=== PATIENT | male | born 1990 | race African-American/Black ===

== ENCOUNTER 2020-05-24 00:03 | Emergency (ER) | payer SELFPAY ==
[~2020-05-24] VITALS: Ht 177.8 cm; Wt 65.9 kg
[2020-05-24] MEDS ORDERED: BASAGLAR K100 UNIT/1 SQ (00:16)
[2020-05-24] MEDS ORDERED: NOVOLIN R100 UNIT/1 SQ (00:16)
[2020-05-24 01:23] VITALS: BP 130/84
== END 2020-05-24 01:23 | disposition home or self-care (01) ==
LOC: ED 00:03
DX: R07.89 Other chest pain (principal); E10.9 Type 1 diabetes mellitus without complications; F17.210 Nicotine dependence, cigarettes, uncomplicated; Z79.4 Long term (current) use of insulin
CPT/HCPCS: J1885